=== PATIENT | male | born 1960 | race Two or more races ===

== ENCOUNTER 2019-03-24 16:17 | Emergency (ER) | payer MEDICAID, OTHER ==
[~2019-03-24] VITALS: Ht 172.7 cm; Wt 95.3 kg
[2019-03-24 16:35] VITALS: BP 141/98
== END 2019-03-24 20:13 | disposition left against medical advice (07) ==
LOC: ER 16:20
DX: M79.632 Pain in left forearm (principal); Z53.21 Procedure and treatment not carried out due to patient leaving prior to being seen by health care provider